=== PATIENT | male | born 1950 | race Caucasian/White ===

== ENCOUNTER 2017-04-16 07:05 | Observation (INO) ==
--- NOTE | 2017-04-16 07:19 | Emergency Department Note ---
Disposition Clinical Impression: Seizure Disposition: Admitted As Inpatient Condition: Fair General Adult HPI - General Chief complaint: ED Seizure Stated complaint: Seizure Time Seen by Provider: 04/16/17 07:14 Source: EMS Limitations: other Nursing Notes Reviewed: Yes Vital Signs Reviewed: Yes - History of Present Illness HPI Narrative: Mr. Bazan, a 67yo male, presents from home via EMS with reported new onset seizure. Witnessed by . EMS called by patient's who is inbound. Per EMS: Patient has history of advanced Alzheimer's and hypertension. No previous seizure history. He does not remember what happened. Patient denies any pain; no head pain, neck pain, chest pain, extremity pain. 07:30: Patient's is now bedside. She notes 6:30 this morning patient was walking across the bedroom and fell before where he was lying on his back with upper extremity strong lower extremities extended with feet near both extremities exhibiting tonic-clonic seizures. Head was extended with eyes deviated toward his forehead. Duration approximately 5 minutes. He has never had a seizure before. He is not his baseline mentation. Patient's daughter and son-in-law are bedside. Patient's daughter was with the patient EMS picked him up and, at that time, he was not at baseline however he is at baseline at this time. PMH: Patient has remote history of cerebral vasculitis with intracerebral hemorrhage. Also hypertension, hyperlipidemia, GERD, depression, Alzheimer's. Meds: Currently takes no anticoagulation or antiplatelet. PCP: [place] Pain Scale: 0 - Related Data Home Medications Medication Instructions Recorded Confirmed Atenolol [Tenormin] 25 mg PO BID 04/16/17 04/16/17 Atorvastatin [Lipitor] 40 mg PO HS 04/16/17 04/16/17 Cholecalciferol (D-3) [Vitamin D] 5,000 unit PO DAILY 04/16/17 04/16/17 Galantamine HBr [Razadyne ER] 24 mg PO DAILY 04/16/17 04/16/17 Glucosamine Sulfate Dipot Chlr 2,000 mg PO DAILY 04/16/17 04/16/17 [Glucosamine] Krill/Om-3/Dha/Epa/Phospho/Ast 1 each PO DAILY 04/16/17 04/16/17 [Krill Oil 1,000 mg Softgel] Losartan [Cozaar] 25 mg PO DAILY 04/16/17 04/16/17 Memantine [Namenda] 10 mg PO BID 04/16/17 04/16/17 Multivitamin [Multivitamins] 1 tab PO DAILY 04/16/17 04/16/17 Niacin [Niacor] 500 mg PO DAILY 04/16/17 04/16/17 Omeprazole 20 mg PO DAILY 04/16/17 04/16/17 Quetiapine Fumarate [Seroquel] 200 mg PO HS 04/16/17 04/16/17 Sertraline [Zoloft] 150 mg PO DAILY 04/16/17 04/16/17 hydroCHLOROthiazide 25 mg PO BID 04/16/17 04/16/17 [Hydrochlorothiazide] Previous Rx's Medication Instructions Recorded levETIRAcetam [Keppra] 500 mg PO Q12HR 30 Days 04/16/17 Allergies Allergy/AdvReac Type Severity Reaction Status Date / Time No Known Allergies Allergy Verified 04/16/17 12:20 All systems ED: reviewed and negative except as stated. Constitutional: Denies: fever, chills Eyes: Denies: vision change ENT ED: Denies: throat pain, congestion Cardiovascular: Denies: chest pain, palpitations, dyspnea on exertion, edema, syncope Respiratory: Denies: cough, dyspnea, wheezes, hemoptysis, sputum production Gastrointestinal: Denies: abdominal pain, nausea, vomiting, diarrhea, constipation Genitourinary: Denies: dysuria Musculoskeletal: Denies: back pain, neck pain Neurological: Denies: headache, numbness, paresthesias, vertigo Past Medical History - Past Medical History Medical history: Reports: dementia Psychiatric history: Reports: no psych history - Social History Smoking Status: Never smoker Smokeless Tobacco Status: No Alcohol use: Reports: none Drug use: Reports: none Physical Exam Vital signs reviewed. General: Patient is alert, oriented to self (name, ). He is not oriented to location, situation, year, season, president (shrugs shoulders at each of these questions). In no acute distress. HEENT: No facial asymmetry. Head is normocephalic and atraumatic. PERRLA, EOMI. Nasal turbinates moist and pink. Bite tucker on patient's tip of tongue; nonbleeding, no laceration. Trachea midline, no palpable thyroid nodules, no thyromegaly. Cardiovascular: Heart regular rate and rhythm without clicks, rubs, gallops, or murmurs. No JVD. PMI nondisplaced. Bilateral radial and posterior tibial pulses equal and 2/4. Respiratory: Symmetric chest rise with good respiratory effort. Bilateral breath sounds are clear without wheezing, crackles, or rhonchi. Abdomen: Bowel sounds present normoactive x-4 quadrants. Abdomen is soft, nondistended, and nontender. No organomegaly noted. Musculoskeletal: Muscle strength 5/5 and symmetric bilaterally in upper and lower extremities. DTRs 2/4 and symmetric bilaterally in upper and lower extremities. Neuro: Cranial nerves II through XII without deficit. Sensation light touch intact. Skin: Scar over patient's right shoulder-old, well-healed. Tattoo on patient's right upper extremity. Psych: Patient's affect is appropriate for situation. 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 History of acute renal failure 2010 requiring urgent dialysis. CKD stage III at that time. Patient is not on dialysis at this time. Otherwise history is concerning for seizure. CT head unremarkable both on my review as well as radiology read. Blood chemistry unremarkable; specifically no leukocytosis, no anemia. No leukocytosis, no anemia, no electrolyte abnormalities, no renal dysfunction, urine drug screen is positive for marijuana. Patient does not take medication which could create a false positive. After question, patient and does use marijuana. 10:20 Spoke with on-call neurology, Dr. Mckinley, who agrees the patient stories convincing and is equally concerned given his past medical history. Recommends beginning Keppra 500 mg by mouth twice a day at this time. He also agrees with admission to the hospitalist with neurology following. Patient accepted by hospitalist, Dr. Crocker. Vital Signs Temperature 98.0 F 04/16/17 07:07 Pulse Rate 68 04/16/17 07:07 Respiratory Rate 18 04/16/17 07:07 Blood Pressure 121/77 04/16/17 07:07 O2 Sat by Pulse Oximetry 97 04/16/17 07:07 Temperature 97.5 F L 04/16/17 16:07 Pulse Rate 55 04/16/17 16:07 Respiratory Rate 16 04/16/17 16:07 Blood Pressure 135/71 04/16/17 16:07 O2 Sat by Pulse Oximetry 99 04/16/17 16:07 Oxygen Delivery Oxygen Delivery Room Air Medical Decision Making - Medical Records Medical records reviewed: Yes I reviewed the patient's medical records. - Lab Data Lab results reviewed: Yes I reviewed the patient's lab results. Result diagrams: 04/16/17 08:12 04/16/17 08:12 Lab Results 04/16/17 04/16/17 04/16/17 Range/Units 07: 08:12 08:12 WBC 5.5 (4.3-11.1) K/mcL RBC 3.76 L (4.19-5.50) M/mcL Hgb 13.0 (12.9-16.9) g/dL Hct 37.7 (37.5-50.1) % MCV 100.3 H (83.0-100.0) fL MCH 34.6 H (28.0-33.3) pg MCHC 34.5 (31.6-35.5) g/dL RDW 12.4 (11.5-14.5) % Plt Count 166 (140-400) K/mcL MPV 9.0 L (9.4-12.4) fL Immature Gran % 0.4 (0-4) % Seg Neutrophils % 59.9 % Lymphocytes % 29.7 % Monocytes % 7.1 % Eosinophils % 2.4 % Basophils % 0.5 % Neutrophils # 3.3 (1.6-8.9) K/mcL Lymphocytes # 1.6 (0.6-4.6) K/mcL Monocytes # 0.4 (0.0-1.3) K/mcL Eosinophils # 0.1 (0.0-0.6) K/mcL Basophils # 0.0 (0.0-0.2) K/mcL Sodium 139 (136-145) mEq/L Potassium 4.4 (3.5-4.5) mEq/L Chloride 104 (98-109) mEq/L Carbon Dioxide 26 (19-29) mEq/L BUN 17 (8-26) mg/dL Creatinine 1.21 (0.72-1.25) mg/dL Est GFR ( Amer) > 60 (> 60) Est GFR (Non-Af Amer) 59 L (> 60) BUN/Creatinine Ratio 14 (6-26) Glucose 95 (70-99) mg/dL POC Glucose 109 H (58-89) Calculated Osmolality 289 (280-300) Calcium 9.3 (8.6-10.8) mg/dL Phosphorus 3.4 (2.3-4.7) mg/dL Magnesium 2.1 (1.6-2.6) mg/dL Troponin I (0-0.03) ng/mL Urine Opiates Screen (Qjnbcu=793) ng/mL Ur Barbiturates Screen (Tcpses=428) ng/mL Ur Phencyclidine Scrn (Cutoff=25) ng/mL Ur Amphetamines Screen (Goajcj=6835) ng/mL U Benzodiazepines Scrn (Jwuqzs=878) ng/mL Urine Cocaine Screen (Cutoff= 300) ng/mL U Marijuana (THC) Screen (Cutoff = 50) ng/mL Ethyl Alcohol < 10 (0-10) mg/dL 04/16/17 04/16/17 Range/Units 08:12 08:35 WBC (4.3-11.1) K/mcL RBC (4.19-5.50) M/mcL Hgb (12.9-16.9) g/dL Hct (37.5-50.1) % MCV (83.0-100.0) fL MCH (28.0-33.3) pg MCHC (31.6-35.5) g/dL RDW (11.5-14.5) % Plt Count (140-400) K/mcL MPV (9.4-12.4) fL Immature Gran % (0-4) % Seg Neutrophils % % Lymphocytes % % Monocytes % % Eosinophils % % Basophils % % Neutrophils # (1.6-8.9) K/mcL Lymphocytes # (0.6-4.6) K/mcL Monocytes # (0.0-1.3) K/mcL Eosinophils # (0.0-0.6) K/mcL Basophils # (0.0-0.2) K/mcL Sodium (136-145) mEq/L Potassium (3.5-4.5) mEq/L Chloride (98-109) mEq/L Carbon Dioxide (19-29) mEq/L BUN (8-26) mg/dL Creatinine (0.72-1.25) mg/dL Est GFR ( Amer) (> 60) Est GFR (Non-Af Amer) (> 60) BUN/Creatinine Ratio (6-26) Glucose (70-99) mg/dL POC Glucose (58-89) Calculated Osmolality (280-300) Calcium (8.6-10.8) mg/dL Phosphorus (2.3-4.7) mg/dL Magnesium (1.6-2.6) mg/dL Troponin I 0.00 (0-0.03) ng/mL Urine Opiates Screen Negative (Zcrlhj=727) ng/mL Ur Barbiturates Screen Negative (Rojogq=749) ng/mL Ur Phencyclidine Scrn Negative (Cutoff=25) ng/mL Ur Amphetamines Screen Negative (Zmsixb=9866) ng/mL U Benzodiazepines Scrn Negative (Jfklwt=183) ng/mL Urine Cocaine Screen Negative (Cutoff= 300) ng/mL U Marijuana (THC) Screen Positive H (Cutoff = 50) ng/mL Ethyl Alcohol (0-10) mg/dL - Radiology Data Radiology results reviewed: Yes I reviewed the patient's radiology results. Head CT 04/16/17 07:14 IMPRESSION: No acute intracranial abnormality. D/ / Hardy Hernandez MD / Hardy Hernandez MD Interpreting Provider: Hardy Hernandez MD - EKG Data EKG #1 EKG attestation: Yes I reviewed and interpreted this EKG. EKG results narrative: EKG gated 04/16/17 at 07:13 interp as normal sinus rhythm with a rate of 65. MA 171, QRS 110, QT/QTC 399/411. Left axis. Nonspecific ST-T changes. Compared to previous dated 04/20/2011 showing no acute ischemic changes in comparison. Attestation Statement - Attestation Attestation: I examined this patient and my medical decision-making was reviewed with the ELECTRIC SEALING MACHINE OPERATOR/PA/Advanced Practice Nurse/Resident Physician. I agree with the documented findings, disposition and treatment plan as described except to the extent set forth below. Patient emergency department after a witnessed seizure. Patient was a home with his who witnessed him laying on the floor. Legs were extended arms were flexed into his chest and generally shaking. No history of seizures. He does have a history of intracerebral hemorrhage. On examination he is awake alert and appropriate. He does have an abrasion to his tongue. Moving all extremities. Awake alert. Mental status at baseline for his catheter present at bedside. Plan. CT head unremarkable. Labs unremarkable. Discussed with neurology and we will start him on Keppra. Admitted for further seizure workup.
[2017-04-16 08:18] LABS: Basophils % 0.5 %; Eosinophils # 0.1 K/mcL (0.0-0.6); Eosinophils % 2.4 %; Hematocrit 37.7 % (37.5-50.1); Immature Granulocytes % 0.4 % (0-4); Lymphocytes # 1.6 K/mcL (0.6-4.6); Lymphocytes % 29.7 %; Mean Corpuscular HGB Conc 34.5 g/dL (31.6-35.5); Mean Corpuscular Hemoglobin 34.6 pg (28.0-33.3); Mean Corpuscular Volume 100.3 fL (83.0-100.0); Monocytes # 0.4 K/mcL (0.0-1.3); Monocytes % 7.1 %; Neutrophils # 3.3 K/mcL (1.6-8.9); Platelet Count 166 K/mcL (140-400); Red Blood Count 3.76 M/mcL (4.19-5.50); Red Cell Distribution Width 12.4 % (11.5-14.5); Segmented Neutrophils % 59.9 %
[2017-04-16 08:32] LABS: BUN/Creatinine Ratio 14 (6-26); Blood Urea Nitrogen 17 mg/dL (8-26); Calcium 9.3 mg/dL (8.6-10.8); Carbon Dioxide 26 mEq/L (19-29); Chloride 104 mEq/L (98-109); Ethanol < 10 mg/dL (0-10); Glucose 95 mg/dL (70-99); Magnesium 2.1 mg/dL (1.6-2.6); Osmolality,Calculated 289 (280-300); Phosphorous 3.4 mg/dL (2.3-4.7); Potassium 4.4 mEq/L (3.5-4.5); Sodium 139 mEq/L (136-145); eGFR For African Americans > 60 (> 60); eGFR For Non-African Americans 59 (> 60)
[2017-04-16 09:34] LABS: Amphetamine Screen,Urine Negative ng/mL (Cutoff=1000); Barbiturate Screen,Urine Negative ng/mL (Cutoff=200); Benzodiazepines Screen,Urine Negative ng/mL (Cutoff=200); Cannabinoid Screen,Urine Positive ng/mL (Cutoff = 50); Cocaine Screen,Urine Negative ng/mL (Cutoff= 300); Opiate Screen,Urine Negative ng/mL (Cutoff=300); Phencyclidine Screen,Urine Negative ng/mL (Cutoff=25)
[2017-04-16] MEDS ORDERED: levETIRAcetam 250 MG TABLET PO ONE (10:26)
--- NOTE | 2017-04-16 11:59 | Neurology - Consult Note ---
Date of Encounter: 04/16/17 Time of Encounter: 10:55 Assessment and Plan (1) Seizure Current Visit: Yes Status: Acute Likely secondary to diffuse atrophy secondary to Alzheimer's vs. vasculitis vs. scarring from previous bleed vs. new mass (unlikely). The patient will be admitted to the hospital for further evaluation. Recommend treatment at this time with Keppra 500mg BID to prevent further episodes. CT of the head was negative for acute intracranial abnormality. Will order MRI of the brain and EEG for further workup. Given that the results are normal the patient can be discharged with outpatient followup with neurology and prescription for Keppra at 500mg BID. History of Present Illness Chief complaint: seizure HPI: Mr. Bazan is a 67 year old male with PMH significant for alzheimers, HTN, and hyperlipidemia who presents today to [place] [facility] for new onset seizure. The is present in the room to give the history due to the patient's underlying Alzheimer's as well as loss of time during the time of his symptoms. She states that her was walking across the room 6:30 this morning when he suddenly collapsed onto his back and began shaking with his legs up in the air and his arms contracted into his chest. He was foaming at the mouth, bit his tongue, and his eyes rolled back. He has no recollection of the event. The is uncertain if he had any loss of bowel or bladder function as he normally wears depends and has some leakage at baseline. He has never had anything like this before. He has a history of cerebral vasculitis reported by the for which he apparently had a intracranial hemorrhage in 2003. He follows with a neurologist of Dr. Mckay in [place] for this yearly and has reportedly been stable. He has been given Keppra 500mg PO x1 in the ER as per the recommendation of Dr. Tobin. He had a CT of the head, which was negative for acute intracranial abnormality, his electrolyte workup was unremarkable, and he has not had any repeat symptoms. The patient states that he is feeling great and is asking to go home, but agrees with his when she states he needs to be in the hospital to be checked out. Past Med Surg Social Fam HX - Past Medical History Medical history: dementia (Alzheimers), hyperlipidemia, hypertension Psychiatric history: no psych history - Social History Smoking Status: Never smoker Smokeless Tobacco Status: No Alcohol use: none Drug use: none Medications and Allergies Atenolol [Tenormin] 25 mg PO DAILY 04/16/17 [History] Atorvastatin [Lipitor] 80 mg PO HS 04/16/17 [History] Cholecalciferol (Vitamin D3) [Vitamin D3] 5,000 unit PO 04/16/17 [History] Galantamine [Razadyne] 8 mg PO 04/16/17 [History] Glucosamine Chondroitin Cap 04/16/17 [History] Krill Oil 1,000 mg Softgel 04/16/17 [History] Losartan [Cozaar] 04/16/17 [History] Memantine [Namenda] 10 mg PO BID 04/16/17 [History] Multivitamin [Multivitamins] 04/16/17 [History] Niacin [Niacor] 04/16/17 [History] Omeprazole [Omeprazole] 04/16/17 [History] Quetiapine Fumarate [Seroquel] 04/16/17 [History] Sertraline [Zoloft] 04/16/17 [History] hydroCHLOROthiazide [Hydrochlorothiazide] 04/16/17 [History] Allergies No Known Allergies Allergy (Verified 04/16/17 07:07) All Systems: A 10-system review of systems was performed and is negative for pertinent findings except as documented above in the HPI. Review of Systems: Negative other than HPI Physical Examination - Vital Signs Vital Signs: Initial Vital Signs Temp Pulse Resp BP Pulse Ox 98.0 F 68 18 121/77 97 04/16/17 07:07 04/16/17 07:07 04/16/17 07:07 04/16/17 07:07 04/16/17 07:07 - Constitutional General appearance: comfortable - Neurologic Sensorimotor examination: intact Detailed motor examination: grossly full strength in all extremities, full strength in all major muscle groups Motor examination - right side: 5/5: deltoids, biceps, triceps, wrist flexion, wrist extension, structural welder, hip flexors, tibialis Anterior, quadriceps, toe extension (EHL), plantarflexion Motor examination - left side: 5/5: deltoids, biceps, triceps, wrist flexion, wrist extension, hip flexors, structural welder, quadriceps, tibialis Anterior, toe extension (EHL), plantarflexion Detailed sensory examination: intact Reflex and gait examination: intact Reflexes: Biceps: 2+, Triceps: 2+, Brachioradialis: 2+, Patella: 2+, Achilles: 1 + Mental Status Examination: awake, alert, oriented to person (Not oriented to time at baseline), follows commands appropriately, answers questions appropriately, no agnosia, no aphasia, makes eye contact Cranial nerve examination: PERRL, EOMI, corneal reflexes brisk symmetrically, sensory to face intact, mastication intact, no facial asymmetry is present, no dysarthria, hearing is intact symmetrically, soft palate elevates bilaterally upon phonation, flexes SCM and trapezius muscles symmetrically with full power, tongue protrudes midline, no atrophy or facial fasiculations present Results - Laboratory Findings CBC and BMP: 04/16/17 08:12 04/16/17 08:12 Abnormal lab findings: Abnormal lab results RBC 3.76 M/mcL (4.19-5.50) L 04/16/17 08:12 MCV 100.3 fL (83.0-100.0) H 04/16/17 08:12 MCH 34.6 pg (28.0-33.3) H 04/16/17 08:12 MPV 9.0 fL (9.4-12.4) L 04/16/17 08:12 Est GFR (Non-Af Amer) 59 (> 60) L 04/16/17 08:12 POC Glucose 109 (58-89) H 04/16/17 07:17 U Marijuana (THC) Screen Positive ng/mL (Cutoff = 50) H 04/16/17 08:35 Consult Discharge Plan - Plan [facility] Care Provider[facility] -
--- NOTE | 2017-04-16 12:21 | Internal Med History&Physical ---
Date of Encounter: 04/17/17 Time of Encounter: 12:18 Assessment and Plan (1) Dementia Status: Acute Family mentions these diagnoses with Alzheimer's dementia. Qualifiers: Qualified Code(s): F03.90 - Unspecified dementia without behavioral disturbance (2) Seizure Status: Acute Generalized tonic clonic seizures. It is his 1st seizure. However because family mentioned a prior diagnosis of cerebritis of unclear etiology and the possibility of prior intracranial hemorrhage I will start the patient on seizure medications. neurology service also conforms to the same. Will start the patient on Keppra 500 mg twice a day. EEG. MRI of the brain will be performed. Seizure precautions. Appreciate neurology input. Patient does drink alcohol. However level of alcohol intake has been steady over the past year with no significant decline in alcohol consumption. Internal Medicine - H&P: HPI Chief complaint: seizure History of present illness: Mr. Bazan is a 67 year old male with past medical history of diagnosis of cerebritis of unclear etiology, suspected diagnosis of intracranial hemorrhage according to family ([facility] AT [facility]) presents to the emergency room today after with seizure. heard the sound of falling, went to see her and noted that he has cheekiness of all extremities eyes rolled up words forming around the mouth. This lasted for approximately 4 minutes. There was a period of confusion afterwards that lasted for approximately 15 minutes. Patient bit his tongue. This is his 1st seizure. No prior history of similar episodes. No recent febrile illness. He drinks alcohol every day however his amount of alcohol consumption has been steady for the past year, drinks one-shot daily. No symptoms of alcohol withdrawal. Family mentioned that he was diagnosed in 2003 with cerebritis and intracranial hemorrhage. Details not very clear. We will get outside record. Patient denies any focal weakness tingling numbness in any extremity facial assymetry or speech slenderness. Past Med Surg Social Fam HX - Past Medical History Medical history: dementia (Alzheimers), hyperlipidemia, hypertension Psychiatric history: no psych history - Social History Smoking Status: Never smoker Smokeless Tobacco Status: No Alcohol use: none Drug use: none - Family History Father Living Status: Unknown Internal Medicine - H&P: Meds Atenolol [Tenormin] 25 mg PO BID 04/16/17 [History] Atorvastatin [Lipitor] 40 mg PO HS 04/16/17 [History] Cholecalciferol (D-3) [Vitamin D] 5,000 unit PO DAILY 04/16/17 [History] Galantamine HBr [Razadyne ER] 24 mg PO DAILY 04/16/17 [History] Glucosamine Sulfate Dipot Chlr [Glucosamine] 2,000 mg PO DAILY 04/16/17 [History ] Krill/Om-3/Dha/Epa/Phospho/Ast [Krill Oil 1,000 mg Softgel] 1 each PO DAILY [History] Losartan [Cozaar] 25 mg PO DAILY 04/16/17 [History] Memantine [Namenda] 10 mg PO BID 04/16/17 [History] Multivitamin [Multivitamins] 1 tab PO DAILY 04/16/17 [History] Niacin [Niacor] 500 mg PO DAILY 04/16/17 [History] Omeprazole 20 mg PO DAILY 04/16/17 [History] Quetiapine Fumarate [Seroquel] 200 mg PO HS 04/16/17 [History] Sertraline [Zoloft] 150 mg PO DAILY 04/16/17 [History] hydroCHLOROthiazide [Hydrochlorothiazide] 25 mg PO BID 04/16/17 [History] levETIRAcetam [Keppra] 500 mg PO Q12HR 30 Days 04/16/17 [Rx] Allergies No Known Allergies Allergy (Verified 04/16/17 12:20) All Systems PM: A 10-system review of systems was performed and is negative for pertinent findings except as documented above in the HPI. Review of systems: 10 point review of systems is negative except for HPI - Constitutional Vitals: Temp Pulse Resp BP Pulse Ox 98.1 F 52 16 129/74 97 04/16/17 11:51 04/16/17 11:51 04/16/17 11:51 04/16/17 11:51 04/16/17 11:51 Exam: Gen.: patient is alert oriented times 3 not in distress. Cardiac: normal S1 S2 no additional sounds or murmurs chest: good air entry. no active wheezing. No crackles or bronchial breathing. abdomen: soft nontender nondistended normal bowel sounds neuro: no focal deficit Internal Med - H&P Results - Labs CBC & Chem 7: 04/16/17 08:12 04/16/17 08:12
[2017-04-16 16:08] VITALS: BP 135/71
--- NOTE | 2017-04-16 16:41 | EEG/EMG/Oth Biometrics Report ---
EEG Procedure Report Date of procedure: 04/16/17 EEG Procedure: Routine EEG Procedure Note: Report: This EEG was acquired with standard international 10-20 electrode placement system with EKG recording. The background activity during this EEG was replaced by a mixture of theta and alpha activity with best frequency up to 8 Hz. The background activity was reactive to eye openings. Sleep stages were not definitively identified during the study. There are no electricographic seizures identified during this tracing. There are no epileptiform discharges and focal slowing noted during this recording. Photic stimulation produced no abnormalities. HV not performed during this study. EKG tracing showed no significant cardiac dysarrhythmia. Impression: This is an abnormal EEG due to presence of mild diffuse background slowing. Clinical Correlation: This EEG is consistent with mild to moderate diffuse cerebral dysfunction that can be seen in patients with mil encephalopathy, metabolic/toxic, electrolyte derangement, or other causes. Clinical correlation suggested.
--- NOTE | 2017-04-16 17:58 | Discharge Summary ---
Date of Encounter: 04/16/17 Time of Encounter: 17:56 - Discharge Diagnosis (1) Dementia Priority: Primary Status: Acute Qualifiers: Qualified Code(s): F03.90 - Unspecified dementia without behavioral disturbance (2) Seizure Priority: Primary Status: Acute - Discharge Medications Prescriptions: levETIRAcetam [Keppra] 500 mg PO Q12HR 30 Days Home Medications: Atenolol [Tenormin] 25 mg PO BID 04/16/17 [History] Atorvastatin [Lipitor] 40 mg PO HS 04/16/17 [History] Cholecalciferol (D-3) [Vitamin D] 5,000 unit PO DAILY 04/16/17 [History] Galantamine HBr [Razadyne ER] 24 mg PO DAILY 04/16/17 [History] Glucosamine Sulfate Dipot Chlr [Glucosamine] 2,000 mg PO DAILY 04/16/17 [History ] Krill/Om-3/Dha/Epa/Phospho/Ast [Krill Oil 1,000 mg Softgel] 1 each PO DAILY [History] Losartan [Cozaar] 25 mg PO DAILY 04/16/17 [History] Memantine [Namenda] 10 mg PO BID 04/16/17 [History] Multivitamin [Multivitamins] 1 tab PO DAILY 04/16/17 [History] Niacin [Niacor] 500 mg PO DAILY 04/16/17 [History] Omeprazole 20 mg PO DAILY 04/16/17 [History] Quetiapine Fumarate [Seroquel] 200 mg PO HS 04/16/17 [History] Sertraline [Zoloft] 150 mg PO DAILY 04/16/17 [History] hydroCHLOROthiazide [Hydrochlorothiazide] 25 mg PO BID 04/16/17 [History] levETIRAcetam [Keppra] 500 mg PO Q12HR 30 Days 04/16/17 [Rx] Allergies/Adverse Reactions: Allergies No Known Allergies Allergy (Verified 04/16/17 12:20) Procedures/tests Complete & Pending: Procedures Performed prior 72 hours Category Date Time Status MR head/brain wo con [MR] Stat MRI 04/16/17 12:15 Completed Date of admission: 04/16/17 11:20 [facility] physician: [facility] Consults: 04/16/17 12:15 Consult to Neurology [CONS] Routine Consulting Provider: [facility] Reason for Consult: seizure Call Completed: Yes Consult to Occupational Therapy [CONS] Routine Comment: Evaluate, develop and implement POC Reason for Consult: weakness Consult to Physical Therapy [CONS] Routine Comment: Evaluate, develop and implement POC Reason for Consult: weakness 04/16/17 16:21 Consult to Interpret Exam [CONS] Routine Consulting Provider: Larry Tobin Consult to Interpret Exam: Interpret EEG - Patient Status Disposition: Home, Self-Care Condition: Fair Overall status at discharge: patient is progressing back to baseline - Discharge Instructions Follow Up With: [facility] [Primary Care Provider] - Larry Tobin MD [Partnered Physician] - (We have requested a follow up appointment with Dr Tobin. The office will call you at home with an appointment date and time.) Interval History: Mr. Bazan is a 67 year old male with past medical history of diagnosis of cerebritis of unclear etiology, suspected diagnosis of intracranial hemorrhage according to family ([facility]) presents to the emergency room today after with seizure. heard the sound of falling, went to see her and noted that he has cheekiness of all extremities eyes rolled up words forming around the mouth. This lasted for approximately 4 minutes. There was a period of confusion afterwards that lasted for approximately 15 minutes. Patient bit his tongue. This is his 1st seizure. No prior history of similar episodes. No recent febrile illness. He drinks alcohol every day however his amount of alcohol consumption has been steady for the past year, drinks one-shot daily. No symptoms of alcohol withdrawal. Family mentioned that he was diagnosed in 2003 with cerebritis and intracranial hemorrhage. Details not very clear. We will get outside record. Patient denies any focal weakness tingling numbness in any extremity facial assymetry or speech slenderness. This has been reviewed and discussed with neurologist who felt comfortable discharging the patient home today. He recommended Keppra 500 mg twice a day. I have given the patient prescription for that. Recommended outpatient follow-up with neurologist within one to 2 weeks after discharge. Return to the emergency room with any new seizures. Hospital course: Mr. Bazan is a 67 year old male - Time Spent with Patient Total time spent providing and/or coordinating discharge services: - Constitutional Vitals: Temp Pulse Resp BP Pulse Ox 97.5 F L 55 16 135/71 99 04/16/17 16:07 04/16/17 16:07 04/16/17 16:07 04/16/17 16:07 04/16/17 16:07 Exam: Gen.: patient is alert oriented times 3 not in distress. Cardiac: normal S1 S2 no additional sounds or murmurs chest: fair air entry. no active wheezing. No crackles or bronchial breathing. abdomen: soft nontender nondistended normal bowel sounds neuro: no focal deficit
[2017-04-16] MEDS ORDERED: levETIRAcetam 250 MG TABLET PO SCH (21:30)
--- NOTE | 2017-04-17 17:11 | Electrocardiograph Report ---
[facility] Test Date: 2017-04-16 Pat Name: Ihsan Bazan Department: 105 Room: [facility] Gender: M Multigrapher: : 1950 Requested By: Zion Walker Order Number: [id number] Reading MD: Pilo Machado MD Measurements Intervals [place] Rate: 65 P: 57 AK: 171 QRS: -30 QRSD: 110 T: 9 QT: 399 QTc: 411 Interpretive Statements SINUS RHYTHM BORDERLINE LEFT AXIS DEVIATION [QRS AXIS < -20] INTERPRETATION BASED ON A DEFAULT AGE OF 40 YEARS Electronically Signed On 04-17-2017 17:10:35 EDT by Pilo Machado MD
== END 2017-04-16 18:20 | disposition home or self-care (01) ==
LOC: EMEROO 07:05 → 3BNU 11:20 → INTOOBSV 11:20 → 3BNU 11:35
PROVIDERS: ADMIT Hospitalist; ATTEND Nurse Practitioner Family